=== PATIENT | male | born 1995 | race Caucasian/White ===

== ENCOUNTER 2024-05-24 15:31 | Outpatient (CLI) | payer OTHER | END 2024-05-24 23:59 | disposition home or self-care (01) | LOC: MRI02 15:31 | PROVIDERS: ATTEND Family Medicine | DX: S46.811D Strain of other muscles, fascia and tendons at shoulder and upper arm level, right arm, subsequent encounter (principal); S43.401D Unspecified sprain of right shoulder joint, subsequent encounter; M50.122 Cervical disc disorder at C5-C6 level with radiculopathy; M48.02 Spinal stenosis, cervical region; X58.XXXD Exposure to other specified factors, subsequent encounter | CPT/HCPCS: 72141 ==